=== PATIENT | male | born 1995 | race Caucasian/White ===

== ENCOUNTER 2024-11-07 18:35 | Emergency (ER) | payer BC ==
[~2024-11-07] VITALS: Ht 182.9 cm; Wt 79.4 kg
[2024-11-07] MEDS ORDERED: NS 1,000 ML IV SCH (21:40)
[2024-11-07] MEDS ORDERED: Ondansetron HCl 2 MG / ML 2ML Vial IV ONE (21:40)
[2024-11-07] MEDS ORDERED: Morphine Sulfate 4 MG/1 ML Injection IV ONE (21:40)
[2024-11-07 22:00] LABS: BASOPHILS ABSOLUTE AUTO 0.02 K/mm3 (0.00-0.23); BASOPHILS PERCENT AUTO 0 % (0-2); EOSINOPHILS ABSOLUTE AUTO 0.01 K/mm3 (0.00-0.68); EOSINOPHILS PERCENT AUTO 0 % (0-6); Hematocrit 37.1 % (37.0-53.0); Hemoglobin 13.8 g/dL (13.5-17.5); IMMATURE GRAN ABSOLUTE AUTO 0.05 K/mm3 (0.00-0.10); IMMATURE GRAN PERCENT AUTO 0 % (0-1); LYMPHOCYTES ABSOLUTE AUTO 2.06 K/mm3 (0.84-5.20); LYMPHOCYTES PERCENT AUTO 13 % (21-46); MONOCYTES ABSOLUTE AUTO 1.29 K/mm3 (0.16-1.47); MONOCYTES PERCENT AUTO 8 % (4-13); Mean Corpuscular HGB Conc 37.2 g/dL (31.5-36.5); Mean Corpuscular Volume 77 fL (80-100); NEUTROPHILS ABSOLUTE AUTO 12.35 K/mm3 (1.96-9.15); NEUTROPHILS PERCENT AUTO 78 % (41-73); NRBC ABSOLUTE 0.00 K/mm3 (0.00-0.02); NRBC Auto 0.0 /100 WBC (0.0-0.2); Platelet Count 226 K/mm3 (150-400); RDW Coefficient Variation 11.7 % (11.7-14.2); RDW Standard Deviation 32.2 fL (35.1-46.3)
[2024-11-07 22:23] LABS: Alanine Aminotransfer (ALT/SGP 22.0 U/L (12-78); Albumin, Blood 4.4 g/dL (3.4-5.0); Albumin/Globulin Ratio 1.5 (0.8-1.8); Anion Gap 11.0 mmol/L (3-11); Aspartate Aminotrans (AST/SGOT 20.0 U/L (12-37); Bilirubin, Total 1.3 mg/dL (0.1-1.0); Blood Urea Nitrogen 14.0 mg/dL (8-24); CO2, Blood 22.0 mmol/L (21-32); Calcium, Blood 9.2 mg/dL (8.5-10.1); Chloride, Blood 105.0 mmol/L (98-108); Creatinine, Blood 0.9 mg/dL (0.60-1.20); Globulin, Blood 3.0 g/dL (2.2-4.0); Glucose, Blood 117.0 mg/dL (70-99); Potassium, Blood 3.6 mmol/L (3.5-5.5); Sodium, Blood 134.0 mmol/L (136-145); Total Protein, Blood 7.4 g/dL (6.4-8.2)
[2024-11-07] MEDS ORDERED: DiphenhydrAMINE HCl 50 MG/ML 1ML Vial IV ONE (22:40)
[2024-11-07] MEDS ORDERED: Haloperidol Lactate Inj. 5 MG/ML Injection IV ONE (22:40)
[2024-11-07] MEDS ORDERED: Ketorolac Tromethamine 15mg Vial IV ONE (23:45)
[2024-11-07] MEDS ORDERED: HYDROmorphone HCl/Pf 1MG SYR IV ONE (23:45)
[2024-11-08 00:07] LABS: Source, Urine Clean Catch
[2024-11-08 00:13] LABS: Bilirubin, Urine Neg (Neg); Glucose Qualitative, Urine Neg (Neg); Ketones, Urine 2+ (Neg); Leukocyte Esterase, Urine Neg (Neg); Protein, Urine Neg (Neg); Specific Gravity, Urine 1.010 (1.003-1.022); Urobilinogen, Urine NORM (Normal)
[2024-11-08 00:16] LABS: Color, Urine Yellow (P-Yellow)
[2024-11-08 00:19] LABS: White Blood Cells, Urine Not Seen /hpf (0-5)
[2024-11-08 00:27] LABS: U Amphetamine Screen Not Detected; U Barbituate Screen Not Detected; U Benzodiazapine Screen Not Detected; U Buprenorphine Screen Not Detected; U Cannabinoids Screen Not Detected; U Cocaine Screen Not Detected; U Methadone Screen Not Detected; U Methamphetamine Screen Not Detected; U Opiates Screen DETECTED; U Oxycodone Screen Not Detected; U Phencyclidine Screen Not Detected
[2024-11-08 00:30] VITALS: BP 128/72
[2024-11-08] MEDS ORDERED: IBUP600 PO ×2 (00:35)
[2024-11-08] MEDS ORDERED: RX Prepack 2 Tabs Ondansetron ODT 4MG UD ONE (00:35)
[2024-11-08] MEDS ORDERED: ACET500 PO ×2 (00:35)
[2024-11-08] MEDS ORDERED: ONDA4 PO ×2 (00:35)
[2024-11-08] MEDS ORDERED: RX Prepack 6 Tabs Oxycodone 5mg UD ONE (00:35)
[2024-11-09] MEDS ORDERED: OXAYDO5 M1 PO ×2 (09:58)
[2024-11-09] MEDS ORDERED: AMOCLA875 PO ×2 (09:59)
== END 2024-11-08 00:50 | disposition home or self-care (01) ==
LOC: ER 18:35
PROVIDERS: Emergency Medicine
DX: K82.8 Other specified diseases of gallbladder (principal)
CPT/HCPCS: 74177; 76705; 80053; 81001; 83690; 85025; 96361; 96374-59; 96375; 99284-25; A9270; J1171; J1200; J1630; J1885; J2270; J2405; J7030; Q9967

== ENCOUNTER 2024-11-08 06:23 | Observation (INO) | payer BC | END 2024-11-09 11:53 | disposition home or self-care (01) | LOC: ER 06:23 → SURS 06:24 | PROVIDERS: ADMIT Surgery | PROC: 0DTJ4ZZ Resection of Appendix, Percutaneous Endoscopic Approach (ICD-10-PCS; principal; 2024-11-08) | DX: K35.891 Other acute appendicitis without perforation, with gangrene (principal); R18.8 Other ascites; Z79.899 Other long term (current) drug therapy ==